=== PATIENT | male | born 2000 | race Caucasian/White ===

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

== ENCOUNTER 2022-02-24 23:59 | Emergency (ER) | payer MEDICAID ==
[~2022-02-24] VITALS: Ht 172.7 cm; Wt 61.4 kg
[~2022-02-24 23:59] MED LIST: ONDA4TAB6 PO
[2022-02-25] MEDS ORDERED: AMOX-580 PO (02:14)
[2022-02-25] MEDS ORDERED: amox tr/potassium clavulanate 875/125mg TAB PO ONE (02:15)
== END 2022-02-25 02:34 | disposition home or self-care (01) ==
LOC: ER 23:59
DX: H66.92 Otitis media, unspecified, left ear (principal); K21.9 Gastro-esophageal reflux disease without esophagitis; F12.10 Cannabis abuse, uncomplicated; Z79.899 Other long term (current) drug therapy
CPT/HCPCS: 99283

== ENCOUNTER 2022-05-02 11:06 | Emergency (ER) | payer MEDICAID ==
[~2022-05-02] VITALS: Ht 172.7 cm; Wt 59.1 kg
[2022-05-02] MEDS ORDERED: ondansetron/PF 4mg/2ml inj IV ONE (12:25)
[2022-05-02] MEDS ORDERED: normal saline 1000ML IV soln IVB ONE (12:25)
[2022-05-02 12:48] LABS: BASOPHILS % (AUTO) 0.3 % (0-1); EOSINOPHILS % (AUTO) 0 % (0-6); HEMATOCRIT 47.7 % (42.0-52.0); HEMOGLOBIN 15.9 g/dl (14.0-17.9); LYMPHOCYTES # (AUTO) 1.9 X10'3 (1.1-4.8); LYMPHOCYTES % (AUTO) 15.7 % (21-51); MEAN CORPUSCULAR HEMOGLOBIN 29.9 PG (27.0-31.0); MEAN CORPUSCULAR HGB CONC 33.3 g/dL (33.0-36.5); MEAN CORPUSCULAR VOLUME 89.6 FL (78-98); MEAN PLATELET VOLUME 7.6 FL (7.4-10.4); MONOCYTES # (AUTO) 1.2 X10'3 (0-0.9); MONOCYTES % (AUTO) 10.2 % (2-12); NEUTROPHILS # (AUTO) 8.8 X10'3 (1.8-7.7); NEUTROPHILS % (AUTO) 73.8 % (42-75); PLATELET COUNT 455 X10'3 (140-440); RED BLOOD COUNT 5.33 X10'6 (4.70-6.10); RED CELL DISTRIBUTION WIDTH 13.4 % (11.5-14.5)
[2022-05-02 12:50] LABS: CLARITY,URINE CLEAR (Clear); COLOR,URINE YELLOW (Yellow); GLUCOSE, URINE NEGATIVE (Neg); KETONES,URINE 15 mg/dl (Neg); LEUKOCYTE ESTERASE ,URINE NEGATIVE (Neg); NITRITES, URINE NEGATIVE (Neg); OCCULT BLOOD,URINE NEGATIVE (Neg); PH,URINE 6.5 (4.8-8.0); PROTEIN,URINE 30 mg/dl (Neg)
[2022-05-02 12:53] LABS: UA COLLECTION TYPE CLN CATCH MIDSTREAM
[2022-05-02 12:55] LABS: BACTERIA,URINE NONE SEEN /HPF (Neg); HYALINE CASTS 0-3 /LPF (NEGATIVE); RBC,URINE NONE SEEN /HPF (0-2); SQUAMOUS EPITHELIAL CELL,UR FEW /LPF (FEW)
[2022-05-02 12:56] LABS: MUCUS STRANDS MANY /LPF (Neg)
[2022-05-02 13:05] LABS: ALANINE AMINOTRANSFERASE 31 U/L (12-78); ALBUMIN 5.3 G/DL (3.4-5.0); ALBUMIN/GLOBULIN RATIO 1.2 (1.1-1.5); ALKALINE PHOSPHATASE 114 IU/L (20-180); BILIRUBIN,TOTAL 1.1 MG/DL (0.1-1.0); CALCIUM 9.9 MG/DL (8.5-10.1); GLUCOSE 108 MG/DL (70-104); LIPASE 100 U/L (73-393); TOTAL PROTEIN 9.6 G/DL (6.4-8.2)
[2022-05-02 13:28] LABS: ASPARTATE AMINO TRANSFERASE 35 U/L (10-37)
[2022-05-02 13:30] LABS: ANION GAP 14 (8-16); BLOOD UREA NITROGEN 17 MG/DL (7-18); CHLORIDE 97 MMOL/L (99-107); POTASSIUM 3.2 MMOL/L (3.5-5.1); SODIUM 137 MMOL/L (135-145); TOTAL CARBON DIOXIDE 26.1 MMOL/L (24-32); eGFR > 90 ML/MIN
[2022-05-02] MEDS ORDERED: ONDA4TAB12 PO (13:53)
[2022-05-02 15:46] VITALS: BP 115/76
== END 2022-05-02 15:32 | disposition home or self-care (01) ==
LOC: ER 11:06
DX: R11.2 Nausea with vomiting, unspecified (principal); R10.31 Right lower quadrant pain; K21.9 Gastro-esophageal reflux disease without esophagitis; F12.90 Cannabis use, unspecified, uncomplicated; Z79.899 Other long term (current) drug therapy
CPT/HCPCS: 36415; 74176; 80053; 81001; 83690; 85025; 87088; 96361; 96374; 99285; J2405; J7030

== ENCOUNTER 2023-01-23 10:00 | Emergency (ER) | payer MEDICAID ==
[~2023-01-23] VITALS: Ht 172.7 cm; Wt 64.7 kg
[~2023-01-23 10:00] MED LIST changes: +ONDA4TAB12 PO; +SENN1TAB33 PO
--- NOTE | 2023-01-23 11:03 | NUR ---
UTILITY MECHANIC ASSESSMENT REVIEWED BY JUAN RN; APPROVED
[2023-01-23 13:03] VITALS: BP 133/83; PULSE 73; RESP 18; O2SAT 69
[2023-01-23 13:20] LABS: BASOPHILS % (AUTO) 0.7 % (0-1); EOSINOPHILS # (AUTO) 0.1 X10'3 (0-0.9); EOSINOPHILS % (AUTO) 2.4 % (0-6); HEMATOCRIT 44.6 % (42.0-52.0); HEMOGLOBIN 15.2 g/dl (14.0-17.9); LYMPHOCYTES # (AUTO) 1.7 X10'3 (1.1-4.8); LYMPHOCYTES % (AUTO) 29.5 % (21-51); MEAN CORPUSCULAR HEMOGLOBIN 31.4 PG (27.0-31.0); MEAN CORPUSCULAR VOLUME 92.6 FL (78-98); MEAN PLATELET VOLUME 7.7 FL (7.4-10.4); MONOCYTES # (AUTO) 0.7 X10'3 (0-0.9); MONOCYTES % (AUTO) 11.2 % (2-12); NEUTROPHILS # (AUTO) 3.3 X10'3 (1.8-7.7); NEUTROPHILS % (AUTO) 56.2 % (42-75); PLATELET COUNT 385 X10'3 (140-440); RED BLOOD COUNT 4.82 X10'6 (4.70-6.10); RED CELL DISTRIBUTION WIDTH 13.3 % (11.5-14.5); WHITE BLOOD COUNT 5.9 X10'3 (4.5-11.0)
[2023-01-23 13:33] LABS: ALANINE AMINOTRANSFERASE 23 U/L (12-78); ALBUMIN 4.7 G/DL (3.4-5.0); ALBUMIN/GLOBULIN RATIO 1.4 (1.1-1.5); ALKALINE PHOSPHATASE 89 IU/L (46-116); ANION GAP 6 (8-16); ASPARTATE AMINO TRANSFERASE 28 U/L (10-37); BILIRUBIN,TOTAL 0.7 MG/DL (0.1-1.0); BLOOD UREA NITROGEN 12 MG/DL (7-18); BUN/CREATININE RATIO 14.3 (10.0-20.0); CALCIUM 9.4 MG/DL (8.5-10.1); CHLORIDE 101 MMOL/L (99-107); CREATININE 0.84 MG/DL (0.60-1.10); GLUCOSE 95 MG/DL (70-104); SODIUM 136 MMOL/L (135-145); TOTAL CARBON DIOXIDE 29.4 MMOL/L (24-32); TOTAL PROTEIN 8.1 G/DL (6.4-8.2); eCRCL 127 ML/MIN; eGFR > 90 ML/MIN
[2023-01-23 13:40] LABS: PRO BRAIN NATRIURETIC PEPTIDE < 30 PG/ML (0-125)
[2023-01-23 14:30] VITALS: TEMP 97.5
== END 2023-01-23 14:30 | disposition home or self-care (01) ==
LOC: ER 10:01
DX: R07.89 Other chest pain (principal); K21.9 Gastro-esophageal reflux disease without esophagitis; F12.90 Cannabis use, unspecified, uncomplicated; Z79.899 Other long term (current) drug therapy
CPT/HCPCS: 36415; 71045; 80053; 83880; 84484; 85025; 93005; 99285

== ENCOUNTER 2024-06-22 11:41 | Emergency (ER) | payer MEDICAID ==
[~2024-06-22] VITALS: Ht 172.7 cm; Wt 58.6 kg
[~2024-06-22 11:41] MED LIST changes: +ONDA-243 PO; -ONDA4TAB12 PO
[2024-06-22] MEDS: ketorolac trometh 15mg/ml vial 15 MG/ML ML IM ONE (12:09)
[2024-06-22 13:14] VITALS: BP 122/81; PULSE 78; TEMP 98.5; O2SAT 99
[2024-06-22 13:16] VITALS: RESP 16
== END 2024-06-22 13:14 | disposition home or self-care (01) ==
LOC: ER 11:41
DX: M25.552 Pain in left hip (principal); F12.90 Cannabis use, unspecified, uncomplicated; K21.9 Gastro-esophageal reflux disease without esophagitis; Z79.899 Other long term (current) drug therapy
CPT/HCPCS: 73502; 96372; 99283; J1885

== ENCOUNTER 2024-10-06 08:50 | Emergency (ER) | payer MEDICAID ==
[~2024-10-06] VITALS: Ht 172.7 cm; Wt 54.0 kg
[2024-10-06 09:31] LABS: MEAN PLATELET VOLUME 7.6 FL (7.4-10.4); RED CELL DISTRIBUTION WIDTH 12.9 % (11.5-14.5)
[2024-10-06 10:15] LABS: LEUKOCYTE ESTERASE ,URINE NEGATIVE (Neg); NITRITES, URINE NEGATIVE (Neg); OCCULT BLOOD,URINE NEGATIVE (Neg)
--- NOTE | 2024-10-06 10:31 | Physician Documentation ---
History of Present Illness Chief Complaint: Abdominal Pain Stated Complaint: ABD PAIN Time Seen by MD: 10:16 Primary Medical Doctor: NEREYDA BARRERA Mode of Arrival: POV, Ambulatory HPI 23-year-old male presenting with left lower quadrant abdominal pain for the past three days. Patient reports that he has had this pain that has been constant and fluctuating in intensity. Additionally he has had watery diarrhea that has been present during this time and has finally improved today to solid stools. He denies any blood in his diarrhea. Reports that he has not really been able to eat very much during this time due to low appetite. Denies any nausea, vomiting, fever, chills or any other associated symptoms. Medication Reconciliation Allergies: Coded Allergies: No Known Allergies (Unverified , 10/06/24) Scheduled Sennosides/Docusate Sodium (Docusate Sodium-Sennosides Tab), 2 TAB PO Q12H Scheduled PRN ONDANSETRON ODT 4mg tablet (Ondansetron Odt), 1 TABLET PO Q6H PRN for nausea/vomiting ONDANSETRON ODT 4mg tablet (Ondansetron Odt), 1 TABLET PO Q8H PRN for nausea/vomiting Ondansetron Hcl (Zofran), 1 TAB PO Q6H PRN for nausea/vomiting Past Medical History Past Medical History: GERD Past Surgical History: noncontributory Alcohol Use: Occasionally Drug Use: marijuana Lives with: Mother Lives In: Home Physical Exam Vital Signs: Temperature: 97.0, Source: Temporal, Heart Rate: 86, Respiratory Rate: 16, BP: 118/71, Pulse Oximetry: 99, Weight: 54.000 Oxygen Flow Rate: 0 Physical Exam I have reviewed the triage vitals. CONST: Well developed and well nourished. In no acute distress HENT: Head Atraumatic EYES: Pupils are equal, round and reactive to light. Normal conjunctiva NECK: Normal range of motion. Supple. CARDIO: Normal rate and regular rhythm. No murmurs, rubs, or gallops. S1, S2. PULM/CHEST: No respiratory distress. Lungs clear to auscultation. No wheeze ABD: Soft, mild tenderness to palpation over the left lower quadrant. Nondistended. Bowel sounds normal. No guarding. : Exam deferred MSK: No edema. No deformity. NEURO: Alert and oriented to person, place and time. Moving all extremities SKIN: Warm and dry. PSYCH: Normal mood and affect. Good eye contact. Progress Results/Orders Results/Orders Orders - SANDRA GARZON MD Urinalysis, Cult If Indicated (10/06/24 08:55) Amylase (10/06/24 08:55) Lipase (10/06/24 08:55) CMP (10/06/24 08:55) Ct Abdomen Pelvis (10/06/24 10:24) Completed Orders - SANDRA GARZON MD Cbc/Diff (10/06/24 08:55) Vital Signs 10/06/24 10/06/24 10/06/24 08:53 09:07 09:07 Temp 97.0 97.0 Pulse 84 86 Resp 18 16 16 B/P (MAP) 115/76 118/71 (87) Pulse Ox 100 99 O2 Flow Rate 0 Laboratory Tests Test 10/06/24 09:15 10/06/24 10:05 White Blood Count 3.7 L Red Blood Count 4.86 Hemoglobin 14.8 Hematocrit 43.6 Mean Corpuscular Volume 89.8 Mean Corpuscular Hemoglobin 30.5 Mean Corpuscular Hemoglobin Concent 33.9 Red Cell Distribution Width 12.9 Platelet Count 368 Mean Platelet Volume 7.6 Neutrophils (%) (Auto) 48.2 Lymphocytes (%) (Auto) 37.1 Monocytes (%) (Auto) 11.4 Eosinophils (%) (Auto) 2.7 Basophils (%) (Auto) 0.6 Neutrophils # (Auto) 1.8 Lymphocytes # (Auto) 1.4 Monocytes # (Auto) 0.4 Eosinophils # (Auto) 0.1 Basophils # (Auto) 0.0 CBC Comment Chemistry Comments Urine Comment EKG/XRAY/CT/US/VASC/MRI CT : Impression Exam: CT CT ABDOMEN PELVIS History: LLQ pain Comparison Study: CT ABDOMEN PELVIS on DOS: 05/02/22 Technique: Multidetector spiral CT of the abdomen and pelvis was performed from lung bases to pubic symphysis. Imaging was performed without IV contrast. Axial, coronal and sagittal multiplanar reformats were obtained from the axial data set by the technologist. Radiation dose : Abdomen/Pelvis: CTDIvol 5 mGy, DLP 268 mGy*cm. Findings: Evaluation of solid organs is limited due to lack of intravenous contrast use. Lung Bases: No acute or significant lung base finding. Normal heart size. No pleural or pericardial effusion. Liver: The liver is normal in size. No focal lesions. Gallbladder and biliary Tree: Unremarkable Spleen: Unremarkable Pancreas: The pancreas is grossly normal in appearance. Adrenal Glands: Unremarkable Kidneys: Kidneys are grossly normal without calculi or hydronephrosis. Bladder: Grossly unremarkable for degree of distention. Bowel: The stomach is grossly normal in appearance. Wall thickening in jejunal loops in the left upper quadrant. The appendix is not visualized; however, no secondary findings of acute appendicitis identified. Ascites: Absent Lymphadenopathy: No mesenteric, retroperitoneal or periportal lymphadenopathy. Abdominal wall and Mesentery: Unremarkable. Vasculature: The visualized abdominal aorta is normal in size and caliber. Evaluation of abdominal and pelvic vessels is limited due to lack of intravenous contrast. Pelvic Organs: Unremarkable Musculoskeletal: Dextroscoliosis. IMPRESSION: 1. Limited without intravenous contrast. No definite acute abdominal or pelvic findings. Proximal loops of jejunum demonstrate wall thickening which is nonspecific. Consider enteritis. Consider follow-up exam with intravenous contrast. Medical Decision Making Additional Comments 23-year-old male presenting with what appears to be viral gastroenteritis. His symptoms and clinical history are consistent with this. Patient's lab workup is unremarkable. Imaging including CT of the abdomen and pelvis was unremarkable as well. Patient did not require any medication while in the ED and remained comfortable. On reassessment the patient is doing well. His vitals are normal. I advised the patient that this is likely viral in nature and should resolve on its own. Advised him to monitor his symptoms for improvement and resolution and ensure that he is drinking plenty of fluids. He is instructed to follow up with his PCP in the next 2-5 days and return to the ED with any acutely worsening symptoms. Departure Disposition: 01 HOME / SELF CARE / HOMELESS Impression: Primary Impression: Viral gastroenteritis Condition: Improved Discharge Instructions: Viral Gastroenteritis, Adult Additional Instructions: Ensure you are drinking plenty of fluids. Monitor your symptoms for improvement and resolution. You may take Imodium as needed for any lingering symptoms. Should her symptoms not improve follow up with your primary care physician. Return to the ED with any acutely worsening symptoms. Referrals: NO PRIMARY CARE PROVIDER (PCP) Signature Scribe Signature: 1 Attestation: 1 SANDRA GARZON MD Oct 06, 2024 10:31
[2024-10-06 10:38] LABS: UA COLLECTION TYPE CLN CATCH MIDSTREAM
[2024-10-06 10:40] LABS: MUCUS STRANDS MODERATE /LPF (Neg); SQUAMOUS EPITHELIAL CELL,UR FEW /LPF (FEW)
[2024-10-06 10:41] LABS: AMORPHOUS URATES 1+
[2024-10-06 11:04] LABS: TOTAL CARBON DIOXIDE 26.4 MMOL/L (24-32)
[2024-10-06 11:15] LABS: CREATININE 1.10 MG/DL (0.60-1.10); eCRCL 80 ML/MIN; eGFR 84 ML/MIN
--- NOTE | 2024-10-06 11:24 | RADIOLOGY REPORT ---
Exam: CT CT ABDOMEN PELVIS History: LLQ pain Comparison Study: CT ABDOMEN PELVIS on DOS: 05/02/22 Technique: Multidetector spiral CT of the abdomen and pelvis was performed from lung bases to pubic symphysis. Imaging was performed without IV contrast. Axial, coronal and sagittal multiplanar reform ats were obtained from the axial data set by the technologist. Radiation dose : Abdomen/Pelvis: CTDIvol 5 mGy, DLP 268 mGy*cm. Findings: Evaluation of solid organs is limited due to lack of intravenous contrast use. Lung Bases: No acute or significant lung base finding. Normal heart size. No pleural or pericardial effusion. Liver: The liver is normal in size. No focal lesions. Gallbladder and biliary Tree: Unremarkable Spleen: Unremarkable Pancreas: The pancreas is grossly normal in appearance. Adrenal Glands: Unremarkable Kidneys: Kidneys are grossly normal without calculi or hydronephrosis. Bladder: Grossly unremarkable for degree of distention. Bowel: The stomach is grossly normal in appearance. Wall thickening in jejunal loops in the left uppe r quadrant. The appendix is not visualized; however, no secondary findings of acute appendicitis iden tified. Ascites: Absent Lymphadenopathy: No mesenteric, retroperitoneal or periportal lymphadenopathy. Abdominal wall and Mesentery: Unremarkable. Vasculature: The visualized abdominal aorta is normal in size and caliber. Evaluation of abdominal a nd pelvic vessels is limited due to lack of intravenous contrast. Pelvic Organs: Unremarkable Musculoskeletal: Dextroscoliosis. IMPRESSION: 1. Limited without intravenous contrast. No definite acute abdominal or pelvic findings. Proximal loo ps of jejunum demonstrate wall thickening which is nonspecific. Consider enteritis. Consider follow -up exam with intravenous contrast. Radiation optimization: All CT scans at this facility use at least one of these dose optimization nicholas hniques: Automated exposure control mA and/or kV adjustment per patient size (includes targeted exams where dose is matched to clinical indication) or iterative reconstruction. HS:Y
[2024-10-06 12:35] VITALS: BP 100/68; PULSE 60; RESP 18; TEMP 97; O2SAT 99
== END 2024-10-06 16:38 | disposition home or self-care (01) ==
LOC: ER 08:51
DX: A08.4 Viral intestinal infection, unspecified (principal); F12.90 Cannabis use, unspecified, uncomplicated; K21.9 Gastro-esophageal reflux disease without esophagitis; Z72.89 Other problems related to lifestyle; Z79.899 Other long term (current) drug therapy
CPT/HCPCS: 36415; 74176; 80053; 81001; 82150; 83690; 85025; 99284